=== PATIENT | female | born 1990 | race Caucasian/White ===

== ENCOUNTER 2018-08-11 23:04 | Emergency (ER) | payer MEDICAID ==
[2018-08-11] MEDS ORDERED: Acetaminophen Soln 650 MG/20.3 ML UD Cup PO ONE (23:14)
--- NOTE | 2018-08-11 23:15 | EDM.PDOC ---
ED HPI GENERAL MEDICAL PROBLEM - General Stated Complaint: KIDNEY INFECTION Time Seen by Provider: 08/11/18 23:04 Source of Information: Reports: Patient, Family History Limitations: Reports: Other (35 weeks ) - History of Present Illness INITIAL COMMENTS - FREE TEXT/NARRATIVE: 28 y.o.w.f 35 weeks , 3rd , came to the ED with her due to sudden onset of right flank pain. Pt had Kidney infections in the past and it feels like it again. Pt stated, only IV Abx helped her to get rid of the infection. Pt feels nauseated as well, did not take any pain meds LE[employer]INE[employer]. No trauma, No Vag bleed, no SOB, no CP. No other acute med issues. BP 114/78 RR 16 Pulse ox 98% on RA Temp 36.6 Pulse 53 Onset Date: 08/11/18 Onset Time: 20:00 Duration: Hour(s): Location: Reports: Pelvis Quality: Reports: Ache, Burning, Dull Severity: Moderate Improves with: Reports: Rest Worsens with: Reports: Movement Context: Reports: Other (pregnncy, H/O [place] infections) Associated Symptoms: Reports: Other (nausea, right flank pain) - Related Data Allergies Allergy/AdvReac Type Severity Reaction Status Date / Time No Known Allergies Allergy Verified 08/11/18 23:37 Home Meds: Home Meds .Iron Tablet 1 tab PO DAILY 08/11/18 [History] .Synthroid 1 tab PO DAILY 08/11/18 [History] ED ROS GENERAL - Review of Systems Review Of Systems: See Below Constitutional: Reports: No Symptoms HEENT: Reports: No Symptoms Respiratory: Reports: No Symptoms Cardiovascular: Reports: No Symptoms Endocrine: Reports: No Symptoms GI/Abdominal: Reports: Nausea, Other (right flank pain, 35 weeks ) : Reports: Dysuria, Frequency Musculoskeletal: Reports: No Symptoms Skin: Reports: No Symptoms Neurological: Reports: No Symptoms Psychiatric: Reports: No Symptoms Hematologic/Lymphatic: Reports: No Symptoms Immunologic: Reports: No Symptoms ED EXAM - Physical Exam Exam: See Below Exam Limited By: Other (35 weeks ) General Appearance: Alert, WD/WN, Moderate Distress Eye Exam: Bilateral Eye: Normal Inspection Ears: Normal External Exam Nose: Normal Inspection Throat/Mouth: Normal Inspection Head: Atraumatic, Normocephalic Neck: Normal Inspection Respiratory/Chest: No Respiratory Distress, Lungs Clear, Normal Breath Sounds, No Accessory Muscle Use Cardiovascular: Normal Peripheral Pulses, Regular Rate, Rhythm GI/Abdominal Exam: Normal Bowel Sounds, Soft, Tender, Other (35 weeks ) Rectal Exam: Deferred (Female) Exam: Other (right flank pain) Heart Tones: Present (127 b p min) Back Exam: CVA Tenderness (R) Extremities: Normal Inspection, Normal Range of Motion, Non-Tender Neurological: Alert, Oriented, CN II-XII Intact, Normal Cognition, Normal Gait Psychiatric: Normal Affect, Normal Mood Skin Exam: Warm, Dry, Intact, Normal Color, No Rash Lymphatic: No Adenopathy Course - Vital Signs Text/Narrative:: 28 y.o.w.f 35 weeks , 3rd , came to the ED with her due to sudden onset of right flank pain. Pt had Kidney infections in the past and it feels like it again. Pt stated, only IV Abx helped her to get rid of the infection. Pt feels nauseated as well, did not take any pain meds [employer]. No trauma, No Vag bleed, no SOB, no CP. No other acute med issues. BP 114/78 RR 16 Pulse ox 98% on RA Temp 36.6 Pulse 53 PE: WNWD W F 35 weeks from out of town Imaging: Not available, FHT 127 Labs: WBC 12.4 HGB 9.6 BMP nl UA: Pos for UTI with hematuria (clean catch) Impression: 35 weeks , UTI Tx: Zofran 8 mg po. Macrobid 100 mg po 11.35 pm Pt was transferred to the OB Inpatient service 11.[address] Mccurdy, [facility], was called by the nurse, Dr. Mccurdy took over the care at the Inpatient service Plan: Transfer to [facility] inpatient service Last Recorded V/S: Last Vital Signs Temp 36.5 C 08/11/18 23:20 Pulse 53 L 08/11/18 23:20 Resp 16 08/11/18 23:20 BP 114/78 08/11/18 23:20 Pulse Ox 98 08/11/18 23:20 - Orders/Labs/Meds Orders: Active Orders 24 hr Category Date Time Status Sodium Chloride 0.9% [Normal Saline] 1,000 ml Med 08/11/18 23:45 Active IV ASDIRECTED Medication Orders Sodium Chloride (Normal Saline) 1,000 mls @ 125 mls/hr IV ASDIRECTED STA Stop: 08/12/18 07:44 Labs: Laboratory Tests 08/11/18 08/11/18 08/11/18 Range/Units 23:10 23:25 23:25 WBC 12.4 H (4.5-12.0) X10-3/uL RBC 3.88 (3.23-5.20) x10(6)uL Hgb 9.6 L (11.5-15.5) g/dL Hct 29.4 L (30.0-51.3) % MCV 75.8 L (80-96) fL MCH 24.7 L (27.7-33.6) pg MCHC 32.6 (32.2-35.4) g/dL RDW 13.9 (11.5-15.5) % Plt Count 348 (125-369) X10(3)uL MPV 7.4 (7.4-10.4) fL Neut % (Auto) 75.2 (46-82) % Lymph % (Auto) 16.3 (13-37) % [place] % (Auto) 5.7 (4-12) % Eos % (Auto) 3 (1.0-5.0) % Baso % (Auto) 0 (0-2) % Neut # (Auto) 9.4 H (1.6-8.3) # Lymph # (Auto) 2.0 (0.6-5.0) # [place] # (Auto) 0.7 (0.0-1.3) # Eos # (Auto) 0.3 (0.0-0.8) # Baso # (Auto) 0.0 (0.0-0.2) # Sodium 140 (135-145) mmol/L Potassium 3.9 (3.5-5.3) mmol/L Chloride 106 (100-110) mmol/L Carbon Dioxide 23 (21-32) mmol/L BUN 9 (7-18) mg/dL Creatinine 0.7 (0.55-1.02) mg/dL Est Cr Clr Drug Dosing TNP Estimated GFR (MDRD) > 60 (>60) BUN/Creatinine Ratio 12.9 (9-20) Glucose 111 (80-116) mg/dL Calcium 9.3 (8.6-10.2) mg/dL HCG, Quant (<5) mIU/mL Urine Color Yellow (YELLOW) Urine Appearance Clear (CLEAR) Urine pH 7.0 H (5.0-6.5) Ur Specific [place] 1.010 (1.010-1.025) Urine Protein Negative (NEGATIVE) mg/dL Urine Glucose (UA) Normal (NORMAL) mg/dL Urine Ketones Negative (NEGATIVE) mg/dL Urine Occult Blood Moderate H (NEGATIVE) Urine Nitrite Negative (NEGATIVE) Urine Bilirubin Negative (NEGATIVE) Urine Urobilinogen Normal (NEGATIVE) mg/dL Ur Leukocyte Esterase Moderate H (NEGATIVE) Urine RBC 0-5 (0-5) Urine WBC 5-10 H (0-5) Ur Squamous Epith Cells Few H (NS,R,O) Urine Bacteria Few H (NS) 08/11/18 Range/Units 23:25 WBC (4.5-12.0) X10-3/uL RBC (3.23-5.20) x10(6)uL Hgb (11.5-15.5) g/dL Hct (30.0-51.3) % MCV (80-96) fL MCH (27.7-33.6) pg MCHC (32.2-35.4) g/dL RDW (11.5-15.5) % Plt Count (125-369) X10(3)uL MPV (7.4-10.4) fL Neut % (Auto) (46-82) % Lymph % (Auto) (13-37) % [place] % (Auto) (4-12) % Eos % (Auto) (1.0-5.0) % Baso % (Auto) (0-2) % Neut # (Auto) (1.6-8.3) # Lymph # (Auto) (0.6-5.0) # [place] # (Auto) (0.0-1.3) # Eos # (Auto) (0.0-0.8) # Baso # (Auto) (0.0-0.2) # Sodium (135-145) mmol/L Potassium (3.5-5.3) mmol/L Chloride (100-110) mmol/L Carbon Dioxide (21-32) mmol/L BUN (7-18) mg/dL Creatinine (0.55-1.02) mg/dL Est Cr Clr Drug Dosing Estimated GFR (MDRD) (>60) BUN/Creatinine Ratio (9-20) Glucose (80-116) mg/dL Calcium (8.6-10.2) mg/dL HCG, Quant 03370 (<5) mIU/mL Urine Color (YELLOW) Urine Appearance (CLEAR) Urine pH (5.0-6.5) Ur Specific [place] (1.010-1.025) Urine Protein (NEGATIVE) mg/dL Urine Glucose (UA) (NORMAL) mg/dL Urine Ketones (NEGATIVE) mg/dL Urine Occult Blood (NEGATIVE) Urine Nitrite (NEGATIVE) Urine Bilirubin (NEGATIVE) Urine Urobilinogen (NEGATIVE) mg/dL Ur Leukocyte Esterase (NEGATIVE) Urine RBC (0-5) Urine WBC (0-5) Ur Squamous Epith Cells (NS,R,O) Urine Bacteria (NS) Meds: Medications Generic Name Dose Route Start Last Admin Trade Name Freq PRN Reason Stop Dose Admin Sodium Chloride 1,000 mls @ 125 mls/hr 08/11/18 23:45 Normal Saline IV 08/12/18 07:44 ASDIRECTED STA Discontinued Medications Generic Name Dose Route Start Last Admin Trade Name Freq PRN Reason Stop Dose Admin Acetaminophen 650 mg 08/11/18 23:14 08/11/18 23:29 Tylenol PO 08/11/18 23:15 Not Given ONETIME ONE Acetaminophen 650 mg 08/11/18 23:21 08/11/18 23:25 Tylenol PO 08/11/18 23:22 650 mg NOW ONE Administration Acetaminophen Confirm 08/11/18 23:20 08/11/18 23:28 Tylenol Administered 08/11/18 23:21 Not Given Dose 650 mg .ROUTE .STK-MED ONE Nitrofurantoin Macrocrystals 100 mg 08/11/18 23:38 Macrobid PO 08/11/18 23:39 ONETIME ONE Ondansetron HCl 8 mg 08/11/18 23:14 08/11/18 23:25 Zofran Odt PO 08/11/18 23:15 8 mg ONETIME ONE Administration Departure - Departure Time of Disposition: 23:40 Disposition: Refer to Observation Condition: Fair Clinical Impression: Qualifiers: Weeks of gestation: 35 weeks Qualified Code(s): Z3A.35 - 35 weeks gestation of UTI (urinary tract infection) Qualifiers: Urinary tract infection type: acute pyelonephritis Qualified Code(s): N10 - Acute pyelonephritis - Discharge Information - My Orders Last 24 Hours: My Active Orders 08/11/18 23:45 Sodium Chloride 0.9% [Normal Saline] 1,000 ml IV ASDIRECTED - Assessment/Plan Last 24 Hours: My Active Orders 08/11/18 23:45 Sodium Chloride 0.9% [Normal Saline] 1,000 ml IV ASDIRECTED
[2018-08-11] MEDS ORDERED: Acetaminophen 325 MG Tab ONE (23:20)
[2018-08-11] MEDS ORDERED: Acetaminophen 325 MG Tab PO ONE (23:21)
[2018-08-11] MEDS: Ondansetron 8 MG Tab.DIS PO ONE (23:25)
[2018-08-11] MEDS ORDERED: Nitrofurantoin Monohydrate/Macrocrystalline 100 MG Cap PO ONE (23:38)
[2018-08-11] MEDS ORDERED: Sodium Chloride 0.9% 1,000 ML IV STA (23:45)
[2018-08-12] MEDS: Ondansetron 8 MG Tab.DIS PO ONE (00:42)
== END 2018-08-11 23:30 | disposition admitted as inpatient to this hospital (09) ==
LOC: FB.ED 23:04
DX: O23.03 Infections of kidney in pregnancy, third trimester (principal); Z79.899 Other long term (current) drug therapy; Z3A.35 35 weeks gestation of pregnancy
CPT/HCPCS: 36415; 80048; 81001; 84702; 85025; 99285; A9270

== ENCOUNTER 2018-08-11 23:40 | Observation (INO) | payer MEDICAID ==
[2018-08-12] MEDS ORDERED: Morphine 4 MG/ML Syringe ONE (00:09)
[2018-08-12] MEDS ORDERED: cefTRIAXone 1 GM in Sodium Chloride 0.9% 50 ML IV ONE (00:11)
[2018-08-12] MEDS: Morphine 4 MG/ML Syringe IVPUSH PRN ×4 (00:14→06:20)
[2018-08-12] MEDS ORDERED: Lactated Ringers 1,000 ML IV SCH (00:15)
[2018-08-12] MEDS ORDERED: Ondansetron 4 MG/2 ML SDV IVPUSH SCH (00:15)
[2018-08-12] MEDS ORDERED: Sodium Chloride 0.9% 1,000 ML IV SCH ×2 (00:15→08:38)
[2018-08-12] MEDS: Ondansetron 4 MG/2 ML SDV IVPUSH PRN ×2 (00:22→07:51)
[2018-08-12] MEDS ORDERED: cefTRIAXone 1 GM Vial ONE (00:51)
[2018-08-12] MEDS ORDERED: cefTRIAXone 1 GM Vial IVPUSH ONE (00:59)
[2018-08-12] MEDS ORDERED: Sodium Chloride 0.9% 1,000 ML IV ONE (07:40)
--- NOTE | 2018-08-12 08:23 | PCM.LDHP ---
L&D History of Present Illness - General Date of Service: 08/12/18 Admit Problem/Dx: Patient Status Order with Admit Dx/Problem 08/12/18 00:00 Admission Status [Patient Status] [ADT] Routine Admission Diagnosis/Problem Admission Diagnosis/Problem Pyelonephritis affecting in second trimester Source of Information: Patient History Limitations: Reports: No Limitations - History of Present Illness Introduction:: This is a 28-year-old female from the [facility]. She is at about 35 weeks gestation.She presented with abdominal pain mostly in the right flank radiating to the right quadrant .She also endorsed fever chills or rigors, and characteristic of a previous unit tract infections. Symptoms started suddenly over a few hours. She denies any nausea vomiting ,vaginal bleeding or decrease in movements. She does have a history of prior pyelonephritis in , and even bilateral pneumonia. 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: Psychiatric History: Reports: Anxiety, Depression Endocrine/Metabolic History: Reports: Hypothyroidism Hematologic History: Reports: Anemia Other Hematologic History: with Dermatologic History: Reports: Psoriasis - Infectious Disease History Infectious Disease History: Reports: Chicken Pox - Past Surgical History Female Surgical History: Reports: None Social & Family History - Family History Family Medical History: Noncontributory - Tobacco Use Smoking Status *Q: Never Smoker Second Hand Smoke Exposure: No - Caffeine Use Caffeine Use: Reports: Coffee Other Caffeine Use: rarely - Recreational Drug Use Recreational Drug Use: No H&P Review of Systems - Review of Systems: Review Of Systems: ROS reveals no pertinent complaints other than HPI. L&D Exam - Exam Exam: See Below - Vital Signs Vital Signs: Last Vital Signs Temp 98.0 F 08/11/18 23:46 Pulse 81 08/12/18 01:25 Resp 18 08/12/18 01:25 BP 101/54 L 08/12/18 01:25 Pulse Ox 97 08/11/18 23:46 Weight: 72.575 kg - OB Specific Contraction Duration (sec): 90 Contraction Frequency (min): 0 Contraction Intensity: Mild - Exam General: Alert, Oriented HEENT: PERRLA, Conjunctiva Clear, EACs Clear, EOMI, Hearing Intact, Mucosa Moist & [place], Nares Patent, Normal Nasal Septum, Posterior Pharynx Clear, TMs Clear Neck: Supple, Trachea Midline Lungs: Clear to Auscultation, Normal Respiratory Effort Cardiovascular: Regular Rate, Regular Rhythm GI/Abdominal Exam: Normal Bowel Sounds, Soft, Non-Tender, No Organomegaly, No Distention, No Abnormal Bruit, No Mass, Pelvis Stable Rectal Exam: Normal Exam, Normal Rectal Tone Genitourinary: Normal external exam, Normal bimanual exam, Normal speculum exam Back Exam: Normal Inspection, Full Range of Motion Extremities: Normal Inspection, Normal Range of Motion, Non-Tender, No Pedal Edema, Normal Capillary Refill Skin: Warm, Dry, Intact Neurological: Cranial Nerves Intact, Reflexes Equal Bilateral Psychiatric: Alert, Normal Affect, Normal Mood - Problem List (1) Acute pyelonephritis in third trimester, antepartum SNOMED Code(s): 18265948, 440074114 ICD Code: O23.03 - INFECTIONS OF KIDNEY IN , THIRD TRIMESTER; N10 - ACUTE PYELONEPHRITIS Status: Acute Current Visit: Yes (2) SNOMED Code(s): 43033956 ICD Code: Z34.90 - ENCNTR FOR SUPRVSN OF NORMAL , UNSP, UNSP TRIMESTER Status: Acute Current Visit: No Qualifiers: Weeks of gestation: 35 weeks Qualified Code(s): Z3A.35 - 35 weeks gestation of Problem List Initiated/Reviewed/Updated: Yes Orders Last 24hrs: Active Orders 24 hr Category Date Time Status Admission Status [Patient Status] [ADT] Routine ADT 08/12/18 00:00 Active Regular Diet [DIET] Diet 08/12/18 Breakfast Active Morphine Med 08/12/18 03:00 Active 4 mg IVPUSH Q2H PRN Ondansetron [Zofran] Med 08/12/18 00:16 Active 4 mg IVPUSH Q6H PRN Sodium Chloride 0.9% [Normal Saline] 1,000 ml Med 08/12/18 00:15 Active IV ASDIRECTED Sodium Chloride 0.9% [Normal Saline] 1,000 ml Med 08/12/18 07:40 Active IV ONETIME Medication Orders Sodium Chloride (Normal Saline) 1,000 mls @ 125 mls/hr IV ASDIRECTED EDWARDO Last Admin: 08/12/18 00:10 Dose: 125 mls/hr Sodium Chloride (Normal Saline) 1,000 mls @ 999 mls/hr IV ONETIME ONE Stop: 08/12/18 08:40 Last Admin: 08/12/18 07:48 Dose: 999 mls/hr Morphine Sulfate (Morphine) 4 mg IVPUSH Q2H PRN PRN Reason: pain Last Admin: 08/12/18 06:20 Dose: 4 mg Admin: 08/12/18 04:23 Dose: 4 mg Admin: 08/12/18 02:15 Dose: 4 mg Admin: 08/12/18 00:14 Dose: 4 mg Ondansetron HCl (Zofran) 4 mg IVPUSH Q6H PRN PRN Reason: Nausea Last Admin: 08/12/18 07:51 Dose: 4 mg Admin: 08/12/18 00:22 Dose: 4 mg Assessment/Plan Comment:: IV fluids,IV rocephin and morphine prn for pain. Order urine culture, intermittent monitoring
[2018-08-12] MEDS ORDERED: Ondansetron 4 MG/2 ML SDV IVPUSH ONE (10:39)
--- NOTE | 2018-08-14 09:06 | PN ---
DATE SEEN: 08/12/2018 ADDENDUM: The patient at around noon expressed interest to go home. She had one episode of emesis after she got Zofran, it got worse. However, she has no fever or chills and ride is ready to go to [place]. I discharged her home on cephalexin 500 mg p.o. t.i.d. for 1 week and Zofran 4 mg every 6 hours p.r.n. ODT. I discussed the importance of following up with PCP tomorrow, or if things get worse tonight, to go to the emergency room in the [facility]. She left in satisfactory condition. /[id number] CARMEN/RUSS
== END 2018-08-12 11:56 | disposition home or self-care (01) ==
LOC: FB.OB 23:40 → FB.OBCHECK 23:40 → FB.OB 23:41 → FB.OBCHECK 23:41
PROVIDERS: ADMIT Family Medicine; ATTEND Family Medicine
DX: O23.03 Infections of kidney in pregnancy, third trimester (principal); O99.283 Endocrine, nutritional and metabolic diseases complicating pregnancy, third trimester; E03.9 Hypothyroidism, unspecified; Z3A.35 35 weeks gestation of pregnancy; O99.012 Anemia complicating pregnancy, second trimester; Z79.899 Other long term (current) drug therapy
CPT/HCPCS: 36415; 80053; 85025; 87086; 87088; 87186; 96361; 96374; 96375; 96376; G0378; J0696; J2270; J2405; J7030; 80048; 81001; 84702; 99211; 99285; A9270-GY